=== PATIENT | male | born 1990 | race Two or more races ===

== ENCOUNTER 2025-04-15 08:09 | Emergency (ER) | payer BC, SELFPAY ==
[2025-04-15 08:37] VITALS: BP 127/73; PULSE 85; RESP 14; TEMP 36.6; O2SAT 97; BMI 20.9
--- NOTE | 2025-04-15 08:41 | XR_ITS ---
Examination: CT right ankle, without contrast. 2-D sagittal reconstructions. 2-D coronal reconstructions. 3-D reconstructions. Date and time of exam:April 15, 2025, 0909 hrs. Indications: Patient fell off a roof yesterday with injury to the ankle, ankle pain CTDI: vol (mGy):4.39 DLP: (mGycm):132 Technique: Multiple 1.25 mm axial sections of the right ankle have been obtained. 2-D sagittal and coronal reconstructions have been obtained. 3-D reconstructions have been obtained. Low dose protocols were performed. One or more of the following dose reduction techniques were used; automated exposure control, adjustment of the mA and/or KV according to patient size, use of iterative reconstruction technique. Findings: Distal tibia and distal fibula intact Fracture posterior calcaneus axial image 59 extending to the posterior surface of the calcaneus Comminuted fractures more inferior calcaneus axial images 62 through 75 The fractures do not involve the subtalar surface Talus navicular cuboid cuneiforms intact Impression: Comminuted fractures posterior inferior calcaneus without significant displacement
--- NOTE | 2025-04-15 08:54 | PD.EDANKLE ---
Lower Extremity Injury RME/HPI General Chief Complaint: Ankle/Foot Injury Stated Complaint: right foot injury/pain Time Seen by Provider: 04/15/25 08:19 Arrival date/time: 04/15/25 08:09 This is a case of 35-year-old male who came in in the emergency room due to right ankle pain history of present illness started yesterday when the patient fell on the roof and landed to his right ankle now noted to have pain and swelling on the posterior aspect of the right ankle and kel patient denies any back pain hip pain or knee pain or foot pain patient denies other injury denies any head neck chest or abdominal injury denies any numbness weakness tingling sensation Limitations: no limitations Related Data Previous Rx's ?Medication ?Instructions ?Recorded cephalexin 500 mg capsule 1 g PO Q12H Lacerations #28 caps 12/11/17 tramadol 50 mg tablet See Rx Instructions .Route 12/11/17 .COMPLEX #20 tabs hydrocodone 5 mg-acetaminophen 325 1 tab PO Q6H PRN pain #12 tabs 04/15/25 mg tablet Allergies Allergy/AdvReac Type Severity Reaction Status Date / Time ibuprofen (From Motrin) Allergy Verified 04/15/25 08:12 Review of Systems Review of Systems Systems Reviewed: All systems reviewed, normal except as documented Constitutional Constitutional: Reports system reviewed and no additional complaints, except as documented and Reports as per HPI ENT Ears, Nose, Mouth, and Throat: Denies neck pain Cardiovascular Cardiovascular: Reports system reviewed and no additional complaints, except as documented and Reports as per HPI Respiratory Respiratory: Reports system reviewed and no additional complaints, except as documented and Reports as per HPI Musculoskeletal Musculoskeletal: Reports system reviewed and no additional complaints, except as documented, Reports as per HPI, Reports abnormal gait, Reports arthralgias, Denies atrophy, Denies back pain, Denies deformity, Reports joint swelling, Denies limited range of motion, Denies loss of height, Denies muscle cramps, Denies muscle weakness, Denies myalgias, Denies neck pain, Denies numbness, Denies radiating pain into limb, Denies stiffness, Denies tingling and Reports other (Right ankle pain) Neurologic Neurologic: Reports system reviewed and no additional complaints, except as documented, Reports as per HPI, Reports abnormal gait, Denies numbness and Denies tingling Past Medical History Social History SMOKING STATUS: Current every day smoker ED Exam General Limitations: Present no limitations General appearance: Present alert and in no apparent distress; Absent appears intoxicated, anxious or lethargic Head Head exam: Present atraumatic, normocephalic and normal inspection Eye Eye exam: Present normal appearance, PERRL and EOMI ENT ENT exam: Present normal exam, normal oropharynx and mucous membranes moist Neck Neck exam: Present normal inspection, full ROM and trachea midline; Absent tenderness, meningismus, lymphadenopathy or thyromegaly Chest Chest inspection: Present normal inspection and symmetric chest wall rise Respiratory Respiratory exam: Present normal lung sounds bilaterally; Absent respiratory distress, wheezes, stridor, accessory muscle use or prolonged expiratory phase Cardiovascular Cardiovascular exam: Present regular rate, normal rhythm and normal heart sounds; Absent bradycardia, tachycardia, irregular rhythm or systolic murmur Abdominal Exam Abdominal exam: Present soft and normal bowel sounds; Absent tenderness Extremities Exam Extremities exam: Present normal inspection and full ROM Expanded Lower Extremity Exam Hip/Pelvis exam: Present normal inspection and full ROM; Absent tenderness or swelling Upper leg exam: Present normal inspection and full ROM; Absent tenderness or swelling Knee exam: Present normal inspection and full ROM; Absent tenderness or swelling Lower leg exam: Present normal inspection and full ROM; Absent tenderness or swelling Ankle exam: Present tenderness (Noted moderate tenderness on the posterior ankle of the right knee and heel with moderate swelling no crepitation no deformity no redness no ecchymosis ROM is very limited neurovascular is intact negative Park signs negative Homans signs no calf tenderness) and swelling; Absent abrasion, laceration, ecchymosis, deformity, crepitus, dislocation, erythema, tenderness over talofibular lig or anterior draw sign Foot/toe exam: Present normal inspection and full ROM; Absent tenderness or swelling Neurovascular/Tendon exam: Present normal capillary refill Gait: other (Using cane for ambulation pain on the right ankle) Back Exam Back exam: Present normal inspection and full ROM; Absent tenderness, CVA tenderness (R), CVA tenderness (L), muscle spasm, paraspinal tenderness, vertebral tenderness, sciatic notch tenderness (R), sciatic notch tenderness (L), straight leg raise (R) or straight leg raise (L) Neurological Exam Neurological exam: Present alert, oriented X3, CN II-XII intact, reflexes normal and other (Gait is abnormal using cane for ambulate); Absent motor sensory deficit Psychiatric Psychiatric exam: Present normal affect and normal mood Skin Skin exam: Present warm, dry, intact and normal color Course Quality Measures none Orders Category Date Time Status Crutches .NOW Care 04/15/25 10:39 Active Splint / Immobilizer STAT Care 04/15/25 10:[address] ankle RT wo con Stat Exams 04/15/25 08:41 Completed Vital Signs Vital signs: Vital Signs Temperature 97.9 F 04/15/25 08:37 Pulse Rate 85 04/15/25 08:37 Respiratory Rate 14 04/15/25 08:37 Blood Pressure 127/73 04/15/25 08:37 Pulse Oximetry (%) 97 04/15/25 08:37 Oxygen Delivery Method Room Air 04/15/25 08:37 Patient is afebrile not tachycardic not tachypneic not hypoxic oxygen saturation is 97% in room air Extremity Injury, Lower MDM Narrative MDM Narrative:: This is a case of 35-year-old male who came in in the emergency room due to right ankle pain history of present illness started yesterday when the patient fell on the roof and landed to his right ankle now noted to have pain and swelling on the posterior aspect of the right ankle and kel patient denies any back pain hip pain or knee pain or foot pain patient denies other injury denies any head neck chest or abdominal injury denies any numbness weakness tingling sensation physical examination patient is awake alert oriented not in distress nontoxic looking patient vital signs stable patient noted to have moderate tenderness on the posterior aspect of the right ankle and heel no crepitation no deformity with mild to moderate swelling ROM is very limited due to pain neurovascular is intact CT scan showed a right calcaneal fracture patient was given splint short leg here in the emergency room tolerated well neurovascular intact crutches also given patient refused pain medication patient will follow-up with primary care physician in 2 days for reevaluation and to be referred to orthopedic surgeon for further evaluation and treatment of calcaneal fracture patient will continue RICE treat at home and take Motrin Tylenol for pain for any worsening symptoms or any emergent concerns such as numbness weakness tingling sensation he will return the emergency room immediately or call 911 Patient was discharged with comfortable condition walking with stable gait. Patient verbalized no further complains explained diagnosis and answered patient question. Patient is comfortable with the proposed management plan including the need to follow up with his/her primary care physician and any specialist if applicable Discussed patient for any urgent condition or worsening sx, He/She needed to go to emergency room immediately or call 911. Patient acknowledge the responsibility to follow up as instructed and to monitor her/his symptoms. For any persistence of the symptoms for more than 3-5 days return precaution advised. Discussed the result of the test and was given printed discharge instruction Patient data External records reviewed:: [facility] previous records Clinical information provided by:: patient Social determinants that could affect healthcare access:: none Patient has the following chronic illnesses:: None How is presenting disease/condition affected by chronic disease/condition?: no chronic disease Evaluation data The following diagnostics were reviewed and interpreted by me:: radiology exam(s) Lab and/or radiology exams considered but not ordered:: Reviewed Interpretation Summary: Reviewed Medications / Prescriptions Medications or Prescriptions considered but not ordered:: Given Medication administrations:: Given Consultations Consultation(s) initiated? (list below): No Diagnosis Extremity Injury, Lower Differential Diagnosis: ankle fracture Most likely diagnosis given after review of the tests above:: Calcaneal fracture Admission Indicated Admission indicated?: not indicated Explain why admission is indicated or not indicated:: Not indicated Admission Request Was there a request for admission?: No Admission Attestation Admission request attestation: Not indicated Disposition Plan Disposition Plan: Discharge Discharge Attestation Discharge Attestation: The patient and all family members were given an opportunity to ask questions and understood the discharge instructions. Discharge instructions specifically effects, indications for sooner follow up or return to the emergency department, and the expected course of current diagnosis. Patient condition: Stable Discharge Plan Plan Patient Disposition: HOME (Self Care) Patient condition on transfer: Stable Prescriptions/Referrals Prescriptions/Med Rec: New hydrocodone-acetaminophen 5-325 mg tablet 1 tab PO Q6H MDD max 4 TABS PER DAY PRN (Reason: pain) Qty: 12 0RF No Action tramadol 50 mg tablet See Rx Instructions .ROUTE .COMPLEX Qty: 20 0RF Rx Instructions: 1-2 tablets p.o. every 4-6 hours as needed for pain cephalexin 500 mg capsule 1 g PO Q12H Qty: 28 0RF Referrals: No Primary/Family,Physician [Primary Care Provider] - In 1 week Flaquito Linder MD [Physician] - 04/16/25 (For further evaluation and treatment of right calcaneal fracture) Problem List Clinical Impression: Closed fracture of right calcaneus Patient/Caregiver Discharge Instructions Education Materials: Calcaneus, ED Fracture, Foot, ED RICE Additional Instructions: Ice pack every 2 hours for 20 minutes for 24 hours then alternate with warm compress elevate to decrease swelling no weightbearing on the right ankle use of crutches and keep the splint in place until cleared by your primary care physician follow-up with your primary care physician to be referred to orthopedic surgeon for further evaluation and treatment of calcaneal fracture right worsening symptoms or any emergent concerns such as numbness weakness or tingling sensation call 911 or go to the nearest ROOM Motrin or Tylenol as needed for pain Print Language: Tajik Stand Alone Forms: Sherrell Award Info., Patient Portal Info Letter PA/CARPENTRY PROFESSIONAL Supervising Physician PA/CARPENTRY PROFESSIONAL Supervising Physician: DR RATLIFF
[2025-04-15 11:17] VITALS: BP 146/84; PULSE 67; RESP 19; TEMP 36.9; O2SAT 98
== END 2025-04-15 12:16 | disposition home or self-care (01) ==
PROVIDERS: Emergency Provider Emergency Medicine
DX: S92.001A Unspecified fracture of right calcaneus, initial encounter for closed fracture (principal); W19.XXXA Unspecified fall, initial encounter
CPT/HCPCS: 29515; 73700; 99284